=== PATIENT | male | born 1985 | race Caucasian/White ===

== ENCOUNTER 2020-12-05 23:06 | Emergency (ER) | payer OTHER ==
[~2020-12-05 23:06] MED LIST: ALPR1T; ALPR1T PO; CEFU250T11 PO; CRS350T PO; HYDR-4226 PO; POLY10DR OD; PROP-33; PROP1TAB61 PO; QUET300T; SULF1TAB38 PO
[2020-12-05 23:22] LABS: WHITE BLOOD COUNT 11.2 10^3/uL (4.3-11.0)
[2020-12-05 23:23] LABS: BASOPHILS # (AUTO) 0.1 10^3/uL (0.0-0.1); BASOPHILS % (AUTO) 1 % (0-10); EOSINOPHILS # (AUTO) 0.1 10^3/uL (0.0-0.3); EOSINOPHILS % (AUTO) 1 % (0-10); HEMATOCRIT 43 % (40-54); HEMOGLOBIN 14.4 g/dL (13.3-17.7); LYMPHOCYTES # (AUTO) 4.4 X 10^3 (1.0-4.0); LYMPHOCYTES % (AUTO) 39 % (12-44); MEAN CORPUSCULAR HEMOGLOBIN 30 pg (25-34); MEAN CORPUSCULAR HGB CONC 33 g/dL (32-36); MEAN CORPUSCULAR VOLUME 91 fL (80-99); MEAN PLATELET VOLUME 10.1 fL (9.0-12.2); MONOCYTES # (AUTO) 0.7 X 10^3 (0.0-1.0); MONOCYTES % (AUTO) 6 % (0-12); NEUTROPHILS # (AUTO) 5.9 X 10^3 (1.8-7.8); NEUTROPHILS % (AUTO) 53 % (42-75); PLATELET COUNT 253 10^3/uL (130-400)
--- NOTE | 2020-12-05 23:28 | ED Chest Pain ---
General Chief Complaint: Chest Pain Stated Complaint: CHEST PAIN Source: patient, police (Guard from [facility]) History of Present Illness Date Seen by Provider: Dec 05, 2020 Time Seen by Provider: 23:09 Initial Comments 35 yo male presenting from assisted with complaint of chest pain and tingling into left arm and hand. He states this started just a little before 0. He has had similar pains in the past due to reported Mitral Valve issues and states he saw Dr. Parks in [place] for it last around 2008. he is taking lopressor currently for heart rate and blood pressure. He has not seen cardiology since around 2008. He is currently incarcerated and reports having pain at end of October and again last week on November 27. He was treated by chest pain protocol at the [facility] then. Tonight he felt his pain was worse so he came to the ED. He feels like he is short of breath and having trouble catching his breath. He reports a single episode of vomiting when his breathing got short and he started with chest pain. He denies cough, congestion, fever, chills, abdominal pain, trauma. States he was resting in bed when the symptoms came on tonight. He also is concerned that he has not been on his Levothyroxine and asked if that might be causing some of his symptoms. He states it has been at least 18 months since he last took this and has not had follow up or testing for his TSH and thyroid levels. Timing/Duration: 1-3 hours Severity/Quality: severe, sharp Location: other (left upper chest/shoulder) Radiation: arms (left arm) Activities at Onset: rest Prior CP/Workup: other (Reports seeing Dr. Parks with Cardiology in [place] and told he had Mitral Valve issues and thinks he might have gotten a stent) ASA po RN HEART: No NTG SL RN HEART: No Associated Symptoms: No abdominal pain, No back pain, No diaphoresis, No dizziness, No edema, No fatigue, No fever/chills, No headache, No heartburn, No rash; shortness of breath; No swelling/lump in chest, No syncope Allergies and Home Medications Allergies Coded Allergies: Penicillins (Unverified Allergy, Mild, 06/25/08) Iodine (Verified Allergy, 07/19/11) Patient Home Medication List Home Medication List Reviewed: Yes Hydrocodone/Acetaminophen (Hydrocodone/Acetaminophen 5 MG/325 MG TAB) 1 Each Tablet, 1 EACH PO Q4H PRN for PAIN Prescribed by: ETHAN ORTIZ on 08/15/15 1617 Review of Systems Review of Systems Constitutional: No chills, No fever EENTM: No Symptoms Reported Respiratory: Denies Cough; Shortness of Air; Denies Stridor, Denies Wheezing Cardiovascular: Chest Pain Gastrointestinal: Nausea, Vomiting (x1 episode) Genitourinary: No Symptoms Reported Musculoskeletal: no symptoms reported Skin: No rash Psychiatric/Neurological: Denies Headache; Tingling (left hand and arm) Hematologic/Lymphatic: Denies Blood Clots Past Mclqifr-Gzzpjf-Rndxnv Hx Patient Social History Tobacco Use?: Yes Smoking Status: Current Everyday Smoker Use of E-Cig and/or Vaping dev: No Substance use?: Yes Substance type: Methamphetamine Alcohol Use?: Yes Alcohol Frequency: Rarely Past Medical History Asthma Physical Exam Vital Signs Vital Signs - First Documented 12/05/20 23:09 Pulse 68 Resp 18 B/P (MAP) 119/57 (77) Pulse Ox 98 O2 Delivery Room Air Capillary Refill : Less Than 3 Seconds Height, Weight, BMI Height: 6'" Weight: 170lbs. oz. 77.992229ud; BMI Method:Stated General Appearance: No Apparent Distress, WD/WN Neck: Full Range of Motion, Normal Inspection, Non Tender, Supple Respiratory: Chest Non Tender, Lungs Clear, Normal Breath Sounds, No Accessory Muscle Use, No Respiratory Distress Cardiovascular: Regular Rate, Rhythm, No Murmur, Normal Peripheral Pulses Gastrointestinal: Normal Bowel Sounds, No Pulsatile Mass, Non Tender, Soft Rectal: Deferred Extremity: Normal Capillary Refill, Normal Inspection, No Pedal Edema Neurologic/Psychiatric: Alert, Oriented x3, winding operator II-XII Norm as Tested Skin: Normal Color, Warm/Dry; No Rash Images 1 - Reports chest pain in Left upper chest and shoulder area with tingling radiating down left arm to fingers. Progress/Results/Core Measures Results/Orders Lab Results Laboratory Tests Test 12/05/20 23:17 Range/Units White Blood Count 11.2 H 4.3-11.0 10^3/uL Red Blood Count 4.75 4.30-5.52 10^6/uL Hemoglobin 14.4 13.3-17.7 g/dL Hematocrit 43 40-54 % Mean Corpuscular Volume 91 80-99 fL Mean Corpuscular Hemoglobin 30 25-34 pg Mean Corpuscular Hemoglobin Concent 33 32-36 g/dL Red Cell Distribution Width 13.2 10.0-14.5 % Platelet Count 253 130-400 10^3/uL Mean Platelet Volume 10.1 9.0-12.2 fL Immature Granulocyte % (Auto) 0 % Neutrophils (%) (Auto) 53 42-75 % Lymphocytes (%) (Auto) 39 12-44 % Monocytes (%) (Auto) 6 0-12 % Eosinophils (%) (Auto) 1 0-10 % Basophils (%) (Auto) 1 0-10 % Neutrophils # (Auto) 5.9 1.8-7.8 X 10^3 Lymphocytes # (Auto) 4.4 H 1.0-4.0 X 10^3 Monocytes # (Auto) 0.7 0.0-1.0 X 10^3 Eosinophils # (Auto) 0.1 0.0-0.3 10^3/uL Basophils # (Auto) 0.1 0.0-0.1 10^3/uL Immature Granulocyte # (Auto) 0.0 0.0-0.1 10^3/uL Prothrombin Time 13.5 12.2-14.7 SEC INR Comment 1.0 0.8-1.4 Activated Partial Thromboplast Time 28 24-35 SEC Sodium Level 142 135-145 MMOL/L Potassium Level 4.6 3.6-5.0 MMOL/L Chloride Level 105 98-107 MMOL/L Carbon Dioxide Level 26 21-32 MMOL/L Anion Gap 11 5-14 MMOL/L Blood Urea Nitrogen 15 7-18 MG/DL Creatinine 0.86 0.60-1.30 MG/DL Estimat Glomerular Filtration Rate 102 BUN/Creatinine Ratio 17 Glucose Level 92 70-105 MG/DL Calcium Level 9.1 8.5-10.1 MG/DL Corrected Calcium 8.5-10.1 MG/DL Magnesium Level 2.1 1.6-2.4 MG/DL Total Bilirubin 0.3 0.1-1.0 MG/DL Aspartate Amino Transf (AST/SGOT) 18 5-34 U/L Alanine Aminotransferase (ALT/SGPT) 22 0-55 U/L Alkaline Phosphatase 131 40-136 U/L Troponin I < 0.30 <0.30 NG/ML Pro-B-Type Natriuretic Peptide 26.8 <75.0 PG/ML Total Protein 7.4 6.4-8.2 GM/DL Albumin 4.7 H 3.2-4.5 GM/DL Lipase 19 8-78 U/L My Orders Orders - AYDEN HAMPTON MD Cbc With Automated Diff (12/05/20 23:11) Magnesium (12/05/20 23:) Chest 1 View Ap/Pa Only (12/05/20:) Ekg Tracing (12/05/20:) Comprehensive Metabolic Panel (12/05/20:) Protime With Inr (12/05/20:) Partial Thromboplastin Time (12/05/20:) Monitor-Rhythm Ecg Trace Only (12/05/20:) Ed Iv/Invasive Line Start (12/05/20:) Lipase (12/05/20:) Troponin I Fs (12/05/20:) Probnp Fs (12/05/20:) Ketorolac Injection (Toradol Injection) (12/05/20 23:38) Orphenadrine Inj (Ed Only) (Norflex Inje (12/05/20 23:38) Vital Signs/I&O 12/05/20 12/06/20 23:09 00:00 Pulse 68 56 Resp 18 18 B/P (MAP) 119/57 (77) 114/77 Pulse Ox 98 97 O2 Delivery Room Air Room Air Progress Progress Note #1: Progress Note Obtain basic labs with cardiac enzymes. CXR to check for pneumonia, pleural effusion, pneumothorax, cardiomegaly. ECG to evaluate fro acute STEMI, arrhythmia. Review old medical records in electronic medical chart to see if can find any consults or notes from Dr. Parks or Cardiology. Try Toradol with Norflex for his chest pain and tingling into left arm. Progress Note #2: Progress Note CBC with WBC at upper limit of normal at 11.2. Chemistry without acute significant abnormality and negative cardiac enzymes. Coags without acute significant abnormality. ECG appears similar to tracing from 2008. CXR without acute process. Reassure pt that heart tests and chest xray do not show acute heart attack or heart damage or pneumonia or pleural effusion. Could be more musculoskeletal pain. As far as his thyroid goes have him check with clinic for levels and see if he needs to restart a medicine and what dose to give him. I was unable to locate any heart catheterization or consults from Dr. Parks or Cardiology in general going back to 2007. Advised pt that if he has issue with mitral valve he might want to check with Cardiology/pcp and may need echocardiogram to evaluate valves. Initial ECG Impression Date: Dec 05, 2020 Initial ECG Impression Time: 23:08 Initial ECG Rate: 55 Initial ECG Rhythm: Normal Sinus Initial ECG Comparisson: No Previous ECG Available Comment Sinus rhythm with a heart rate of 55 bpm. NH interval 148 ms. QT interval 400 ms with a QTc interval [address] elevation but does have early repolarization changes. Appears similar to prior tracings from 2008. Diagnostic Imaging Diagonstic Imaging: Xray Plain Films/CT/US/NM/MRI: chest Comments NAME: AKIRA BUTLER MED REC#: [id number] PT STATUS: REG ER : 1985 PHYSICIAN: AYDEN HAMPTON MD ADMIT DATE: 12/05/20/ER FS Draft Date of Exam:12/05/20 CHEST 1 VIEW AP/PA ONLY INDICATION: Chest pain and shortness of breath. Comparison made with prior examination 08/08/2008. FINDINGS: The heart size, mediastinal configuration, and pulmonary vascularity are within normal limits. There is no pleural effusion, pneumothorax, or pneumonia. The osseous structures are unremarkable. IMPRESSION: No acute cardiopulmonary abnormality. Dictated on workstation # [id number] Dict: 12/05/20 [id number] Trans: 12/05/20 2330 [id number] Interpreted by: SOHAIL DERAS MD Electronically signed by: Reviewed: Reviewed by Me Departure Impression Primary Impression: Left-sided chest pain Additional Impression: Shortness of breath Disposition: 21 DIS/XFER COURT/[place] (Back to [facility]) Condition: Stable Departure-Patient Inst. Decision time for Depature: 23:54 Referrals: [facility] (PCP/Family) Primary Care Physician CESIA PARKS MD FACP FAC CCDS Patient Instructions: Shortness of Breath, Adult ED, Chest Pain, Adult ED Add. Discharge Instructions: Medically stable to return to [facility] No signs of heart attack or heart damage on testing tonight. Chest xray clear of signs for infection, heart failure, collapsed lung. Check with clinic about testing for thyroid and to determine what dose of Levothyroxine he should restart, if any dose. Follow up with clinic about recurrent chest pains and possibly see Dr. Parks or mine boss of your choice for follow up and recurrent testing if needed for your recurrent episodes of chest pain. All discharge instructions reviewed with patient and/or family. Voiced understanding. AYDEN HAMPTON MD Dec 05, 2020 23:28
[2020-12-05 23:34] LABS: PROTHROMBIN TIME PATIENT 13.5 SEC (12.2-14.7)
[2020-12-05] MEDS ORDERED: KETOROLAC 30 MG/ML VIAL IVP STA (23:38)
[2020-12-05] MEDS ORDERED: ORPHENADRINE 60 MG/2 ML (NORFLEX) AMP (ED ONLY) IVP STA (23:38)
[2020-12-05 23:41] LABS: ALANINE AMINOTRANSFERASE 22 U/L (0-55); ALBUMIN 4.7 GM/DL (3.2-4.5); ALKALINE PHOSPHATASE 131 U/L (40-136); BILIRUBIN,TOTAL 0.3 MG/DL (0.1-1.0); BUN/CREATININE RATIO 17; CALCIUM 9.1 MG/DL (8.5-10.1); CARBON DIOXIDE 26 MMOL/L (21-32); CHLORIDE 105 MMOL/L (98-107); CREATININE SERUM 0.86 MG/DL (0.60-1.30); GFR ESTIMATED 102; GLUCOSE 92 MG/DL (70-105); LIPASE 19 U/L (8-78); MAGNESIUM 2.1 MG/DL (1.6-2.4); POTASSIUM 4.6 MMOL/L (3.6-5.0); SODIUM 142 MMOL/L (135-145); TOTAL PROTEIN 7.4 GM/DL (6.4-8.2)
[2020-12-06] VITALS: BP 114/77
== END 2020-12-06 00:03 ==
LOC: EDUNIT# 23:06 → ER FS 23:08
DX: R07.9 Chest pain, unspecified (principal); R06.02 Shortness of breath; R20.2 Paresthesia of skin; F17.200 Nicotine dependence, unspecified, uncomplicated
CPT/HCPCS: 36415; 71045; 80053; 83690; 83735; 83880; 84484; 85025; 85610; 85730; 93005; 93041

== ENCOUNTER 2022-05-25 02:12 | Emergency (ER) | payer OTHER ==
[2022-05-25] VITALS (7 sets, daily range): BP systolic 107–144; BP diastolic 69–96
[~2022-05-25] VITALS: Ht 180 cm; Wt 100.0 kg
--- NOTE | 2022-05-25 02:43 | ED General ---
General Stated Complaint: TONGUE & THROAT SWELLING Source of Information: Patient (FERMIN HORNE MD) History of Present Illness Date Seen by Provider: May 25, 2022 Time Seen by Provider: 02:28 Initial Comments Patient is a 37-year-old male who presents to the emergency department today with a chief complaint of mouth and tongue swelling. He states it started earlier today and then after he went to bed he felt like he was choking and couldn't swallow. Does not really feel short of breath. Also has Non small cell lung cancer. Continues to smoke. Takes multiple blood pressure medications including lisinopril. Has been on lisinopril for about 6 months. Has never had anything like this before. Patient is very distracted by his phone, very delayed in answering questions and has to be redirected by myself and the nurse multiple times in order to answer questions and make an arm available for an IV, VS - slightly hypertensive. tachycardia at 129 room air oxygen sats Timing/Duration: 12 Hours Severity: Moderate Associated Systoms: Denies Symptoms (FERMIN HORNE MD) Allergies and Home Medications Allergies Coded Allergies: Penicillins (Unverified Allergy, Mild, 06/25/08) Iodine (Verified Allergy, 07/19/11) Patient Home Medication List Home Medication List Reviewed: Yes (FERMIN HORNE MD) Hydrocodone/Acetaminophen (Hydrocodone/Acetaminophen 5 MG/325 MG TAB) 1 Each Tablet, 1 EACH PO Q4H PRN for PAIN Prescribed by: ETHAN ORTIZ on 08/15/15 1617 Review of Systems Review of Systems Constitutional: see HPI EENTM: throat swelling, other (tongue swelling) Respiratory: no symptoms reported Cardiovascular: no symptoms reported Gastrointestinal: no symptoms reported (FERMIN HORNE MD) Past Kvbjvem-Mnjnyu-Jwghqh Hx Past Medical History Asthma (FERMIN HORNE MD) Physical Exam Vital Signs Vital Signs - First Documented 05/25/22 05/25/22 02:23 05:37 Temp 37.4 Pulse 129 Resp 18 B/P (MAP) 137/104 (115) Pulse Ox 95 O2 Delivery Room Air (DUPREE,FRENCH L DO) Vital Signs Capillary Refill : (FERMIN HORNE MD) Height, Weight, BMI Height: 6'" Weight: 170lbs. oz. 77.794272qi; BMI Method:Stated General Appearance: No Apparent Distress, WD/WN, Other (reeks of cigarette sm beth) Eyes: Bilateral Eye Normal Inspection, Bilateral Eye PERRL, Bilateral Eye EOMI HEENT: Other (significant tongue swelling - tongue is not protruding from the mouth. no lip swelling - posterior pharynx open, no uvular edema - mallampati 1; + hot potatoe type voice) Neck: Normal Inspection, Non Tender, Supple Respiratory: Lungs Clear, Normal Breath Sounds, No Accessory Muscle Use, No Respiratory Distress Cardiovascular: Regular Rate, Rhythm, Tachycardia (120) Extremity: Normal Inspection Neurologic/Psychiatric: Alert, Oriented x3, No Motor/Sensory Deficits, Normal Mood/Affect, expeller operator II-XII Norm as Tested Skin: Normal Color, Warm/Dry, Other (FERMIN HORNE MD) Progress/Results/Core Measures Suspected Sepsis SIRS Temperature: Pulse: Respiratory Rate: Blood Pressure / Mean: Laboratory Tests 05/25/22 02:30: Creatinine 0.75 (FERMIN HORNE MD) Results/Orders Lab Results Laboratory Tests Test 05/25/22 02:30 Range/Units Sodium Level 141 135-145 MMOL/L Potassium Level 3.5 L 3.6-5.0 MMOL/L Chloride Level 109 H 98-107 MMOL/L Carbon Dioxide Level 21 21-32 MMOL/L Anion Gap 11 5-14 MMOL/L Blood Urea Nitrogen 11 7-18 MG/DL Creatinine 0.75 0.60-1.30 MG/DL Estimat Glomerular Filtration Rate 121 BUN/Creatinine Ratio 15 Glucose Level 105 70-105 MG/DL Calcium Level 9.2 8.5-10.1 MG/DL (FRENCH DUPREE DO) Medications Given in ED Current Medications Medications Dose Ordered Sig/Emmie Route Start Time Stop Time Status Last Admin Dose Admin Dexamethasone Sodium Phosphate 10 mg ONCE ONCE IV 05/25/22 02:45 05/25/22 02:46 DC 05/25/22 02:54 10 MG (FRENCH DUPREE DO) Vital Signs/I&O 05/25/22 05/25/22 05/25/22 05/25/22 02:23 05:37 05:51 06:17 Temp 37.4 37.0 36.8 Pulse 129 97 88 96 Resp 18 16 16 16 B/P (MAP) 137/104 (115) 123/73 107/69 144/95 Pulse Ox 95 96 95 O2 Delivery Room Air Room Air Room Air 05/25/22 05/25/22 05/25/22 06:43 07:00 08:09 Temp 36.7 36.7 36.7 Pulse 94 86 88 Resp 16 16 20 B/P (MAP) 131/93 121/80 131/96 Pulse Ox 95 95 100 O2 Delivery Room Air Room Air (FRENCH DUPREE DO) Vital Signs/I&O Capillary Refill : (FERMIN HORNE MD) Progress Note : Time: 05:52 Progress Note patient feeling a little better. getting his first unit of FFP. VSS; BP is much better then at presentation. Care passed to Dr Dupree at shift change. (FERMIN HORNE MD) Progress Note : Progress Note 0825 patient symptoms significantly improved. Patient care assumed from Dr. Horne at shift change. Patient's labs were reviewed and interpreted. He had a mild decrease in his chloride and potassium but no acute concerning findings. Patient was educated to be sure to no longer take his lisinopril. Patient's diagnosis and treatment plans are significantly limited by SDOH: including limited education, illiteracy. Limited access to care. Patient was significantly improved, stable and discharged home. (FRENCH DUPREE DO) Departure Impression Primary Impression: Angioedema due to angiotensin converting enzyme inhibitor (RICHARD-I) Disposition: 01 HOME, SELF-CARE Condition: Stable Departure-Patient Inst. Referrals: [facility] (PCP/Family) Primary Care Physician Patient Instructions: Angioedema (DC) Add. Discharge Instructions: You CANNOT take your LISINOPRIL anymore. Stop this medication. It is possible that you could have a return of symptoms within the next month after stopping the lisinopril. If you do, please come back to the Emergency Department for re-evaluation. Please call your primary care doctor's office today to schedule a follow up appointment to add a new Blood Pressure medication to replace the lisinopril. Return to the Emergency Department for any new, emergent or concerning symptoms. Copy Copies To 1: IVANA SHRESTHA KATHRYN M MD May 25, 2022 02:43 FRENCH DUPREE DO May 25, 2022 08:19
[2022-05-25 02:49] LABS: POTASSIUM 3.5 MMOL/L (3.6-5.0)
[2022-05-25 02:50] LABS: CALCIUM 9.2 MG/DL (8.5-10.1)
[2022-05-25 02:55] LABS: CREATININE SERUM 0.75 MG/DL (0.60-1.30)
[2022-05-25] MEDS ORDERED: NS IV 500 ML 500 ML IV SCH (03:00)
[2022-05-25] MEDS ORDERED: NS IV 500 ML 500 ML ONE (05:09)
== END 2022-05-25 08:44 | disposition home or self-care (01) ==
LOC: EDUNIT# 02:12 → ER 02:20
DX: T78.3XXA Angioneurotic edema, initial encounter (principal); T46.4X5A Adverse effect of angiotensin-converting-enzyme inhibitors, initial encounter; I10 Essential (primary) hypertension; F17.210 Nicotine dependence, cigarettes, uncomplicated; Z79.899 Other long term (current) drug therapy
CPT/HCPCS: 36415; 80048; 86850; 86900; 86901

== ENCOUNTER 2022-07-30 02:10 | Emergency (ER) | payer OTHER ==
--- NOTE | 2022-07-30 02:25 | ED Chest Pain ---
General Chief Complaint: Chest Pain Stated Complaint: CP Source: patient Exam Limitations: no limitations History of Present Illness Date Seen by Provider: Jul 30, 2022 Time Seen by Provider: 02:14 Initial Comments 37-year-old male presents to the emergency department via EMS from [facility]. He states that he is having chest pain. He also had a headache of onset. Symptoms started just before midnight and have been persistent since that time. He took his blood pressure in [facility] and it was significantly elevated, greater than 200 systolic. Notably he has been in [facility] since July 21 and he has not had his blood pressure medications including metoprolol and clonidine. He was formally on lisinopril but had angioedema and was taken off of this. He was given amlodipine at the [facility] about an hour prior to arrival. EMS reports his blood pressures in the 180s to 190s systolic range during transport. He was also given aspirin 324 mg by EMS prior to arrival. On arrival he has Nitropaste in place in his left anterior chest and states his chest pain is improved but still there minimally. His headache and blurred vision have improved. Blood pressure on arrival was 160 systolic. He does state he has cardiac stents All other systems reviewed and negative except documented per HPI. Voice recognition software was used to help create this chart Allergies and Home Medications Allergies Coded Allergies: Penicillins (Unverified Allergy, Mild, 06/25/08) RICHARD Inhibitors (Verified Allergy, Unknown, 07/30/22) iodine (Verified Allergy, Unknown, 05/25/22) Patient Home Medication List Home Medication List Reviewed: Yes Hydrocodone/Acetaminophen (Hydrocodone/Acetaminophen 5 MG/325 MG TAB) 1 Each Tablet, 1 EACH PO Q4H PRN for PAIN Prescribed by: ETHAN ORTIZ on 08/15/15 1617 Review of Systems Review of Systems Constitutional: see HPI Past Nduxlrr-Jcouob-Usufwa Hx Past Medical History Surgery/Hospitalization HX: htn Asthma Family Medical History Reviewed Nursing Family Hx Physical Exam Vital Signs Vital Signs - First Documented 07/30/22 02:10 Pulse 86 Resp 16 B/P (MAP) 162/91 (114) Pulse Ox 99 O2 Delivery Room Air Capillary Refill : Height, Weight, BMI Height: 6'" Weight: 170lbs. oz. 77.886955dq; 30.00 BMI Method:Stated General Appearance: No Apparent Distress, WD/WN HEENT: Normal ENT Inspection, Pharynx Normal Neck: Full Range of Motion, Normal Inspection, Non Tender, Supple Respiratory: Chest Non Tender, Lungs Clear, Normal Breath Sounds, No Accessory Muscle Use, No Respiratory Distress Cardiovascular: Regular Rate, Rhythm, No Murmur, Normal Peripheral Pulses Gastrointestinal: Normal Bowel Sounds, No Organomegaly, No Pulsatile Mass, Non Tender, Soft Extremity: Normal Capillary Refill, Normal Inspection, Normal Range of Motion, Non Tender, No Calf Tenderness Neurologic/Psychiatric: Alert, Oriented x3 Skin: Normal Color, Warm/Dry Progress/Results/Core Measures Results/Orders Lab Results Laboratory Tests Test 07/30/22 02:23 Range/Units White Blood Count 12.7 H 4.3-11.0 10^3/uL Red Blood Count 5.14 4.30-5.52 10^6/uL Hemoglobin 14.9 13.3-17.7 g/dL Hematocrit 45 40-54 % Mean Corpuscular Volume 88 80-99 fL Mean Corpuscular Hemoglobin 29 25-34 pg Mean Corpuscular Hemoglobin Concent 33 32-36 g/dL Red Cell Distribution Width 13.1 10.0-14.5 % Platelet Count 303 130-400 10^3/uL Mean Platelet Volume 10.3 9.0-12.2 fL Immature Granulocyte % (Auto) 0 % Neutrophils (%) (Auto) 69 42-75 % Lymphocytes (%) (Auto) 25 12-44 % Monocytes (%) (Auto) 5 0-12 % Eosinophils (%) (Auto) 0 0-10 % Basophils (%) (Auto) 1 0-10 % Neutrophils # (Auto) 8.8 H 1.8-7.8 10^3/uL Lymphocytes # (Auto) 3.1 1.0-4.0 10^3/uL Monocytes # (Auto) 0.7 0.0-1.0 10^3/uL Eosinophils # (Auto) 0.0 0.0-0.3 10^3/uL Basophils # (Auto) 0.1 0.0-0.1 10^3/uL Immature Granulocyte # (Auto) 0.0 0.0-0.1 10^3/uL Sodium Level 137 135-145 MMOL/L Potassium Level 4.3 3.6-5.0 MMOL/L Chloride Level 102 98-107 MMOL/L Carbon Dioxide Level 25 21-32 MMOL/L Anion Gap 10 5-14 MMOL/L Blood Urea Nitrogen 11 7-18 MG/DL Creatinine 0.84 0.60-1.30 MG/DL Estimat Glomerular Filtration Rate 117 BUN/Creatinine Ratio 13 Glucose Level 93 70-105 MG/DL Calcium Level 9.5 8.5-10.1 MG/DL Corrected Calcium 9.2 8.5-10.1 MG/DL Magnesium Level 2.0 1.6-2.4 MG/DL Total Bilirubin 0.3 0.1-1.0 MG/DL Aspartate Amino Transf (AST/SGOT) 20 5-34 U/L Alanine Aminotransferase (ALT/SGPT) 31 0-55 U/L Alkaline Phosphatase 124 40-136 U/L Myoglobin 26.4 10.0-92.0 NG/ML Troponin I < 0.028 <0.028 NG/ML Total Protein 7.5 6.4-8.2 GM/DL Albumin 4.4 3.2-4.5 GM/DL My Orders Orders - CECILIO LOYOLA DO Ekg Tracing (07/30/22 02:16) Cbc With Automated Diff (07/30/22 02:20) Magnesium (07/30/22 02:20) Chest 1 View, Ap/Pa Only (07/30/22 02:20) Comprehensive Metabolic Panel (07/30/22 02:20) Myoglobin Serum (07/30/22 02:20) Ed Iv/Invasive Line Start (07/30/22 02:20) Troponin I Vivian (07/30/22 02:20) Metoprolol Succinate (Xl) Tab (Toprol Xl (07/30/22 02:30) Clonidine Tablet (Catapres Tablet) (07/30/22 02:30) Hydralazine Injection (Apresoline Inject (07/30/22 03:15) Acetaminophen Tablet (Tylenol Tablet) (07/30/22 03:53) Acetaminophen Tablet (Tylenol Tablet) (07/30/22 04:00) Medications Given in ED Current Medications Medications Dose Ordered Sig/Emmie Route Start Time Stop Time Status Last Admin Dose Admin Acetaminophen 1,000 mg ONCE ONCE PO 07/30/22 04:00 07/30/22 04:01 07/30/22 03:57 1,000 MG Clonidine HCl 0.2 mg ONCE ONCE PO 07/30/22 02:30 07/30/22 02:32 DC 07/30/22 02:44 0.2 MG Hydralazine HCl 10 mg ONCE ONCE IV 07/30/22 03:15 07/30/22 03:16 DC 07/30/22 03:20 10 MG Metoprolol Succinate 100 mg ONCE ONCE PO 07/30/22 02:30 07/30/22 02:32 DC 07/30/22 02:44 100 MG Vital Signs/I&O 07/30/22 07/30/22 02:10 03:57 Pulse 86 Resp 16 B/P (MAP) 162/91 (114) 130/80 (97) Pulse Ox 99 O2 Delivery Room Air Comment Sinus rhythm at a rate of 77 bpm. Normal intervals. Normal axis. No ST or T wave abnormalities. No ectopy. No STEMI. Diagnostic Imaging Comments Chest x-ray is negative for any acute cardiopulmonary or bony abnormalities on my independent review. Departure Communication (Admissions) Patient initially with severe hypertension. This did start coming down on its own with amlodipine that was given prior to arrival as well as his Nitropaste. I took over the Nitropaste and needed help a slight rebound and hypertension briefly. We gave him his p.o. metoprolol and clonidine and gave him some IV hydralazine to work in the interim while these medications took effect. This had a good improvement in his blood pressure. The bedside monitor was reading high however on several manual readings, the last one taken by myself his blood pressure is currently 130/80. He does describe a headache, I think this is likely from decreasing his blood pressure and possibly from the nitro as well. He is given Tylenol for this. I wrote for him to have his metoprolol and clonidine at the [facility]. He is discharged in stable condition. Impression Primary Impression: Essential hypertension Disposition: 01 HOME, SELF-CARE Condition: Stable Departure-Patient Inst. Referrals: [facility] (PCP/Family) Primary Care Physician Patient Instructions: Chest Pain That Is Not Caused by the Heart (DC), High Blood Pressure ED Add. Discharge Instructions: Take your blood pressure medication as previously prescribed. Return to the emergency department for any severe concerns. All discharge instructions reviewed with patient and/or family. Voiced understanding. CECILIO LOYOLA DO Jul 30, 2022 02:25
[2022-07-30 02:30] LABS: BASOPHILS # (AUTO) 0.1 10^3/uL (0.0-0.1); BASOPHILS % (AUTO) 1 % (0-10); EOSINOPHILS % (AUTO) 0 % (0-10); HEMATOCRIT 45 % (40-54); HEMOGLOBIN 14.9 g/dL (13.3-17.7); LYMPHOCYTES # (AUTO) 3.1 10^3/uL (1.0-4.0); LYMPHOCYTES % (AUTO) 25 % (12-44); MEAN CORPUSCULAR HEMOGLOBIN 29 pg (25-34); MEAN CORPUSCULAR HGB CONC 33 g/dL (32-36); MEAN CORPUSCULAR VOLUME 88 fL (80-99); MEAN PLATELET VOLUME 10.3 fL (9.0-12.2); MONOCYTES # (AUTO) 0.7 10^3/uL (0.0-1.0); MONOCYTES % (AUTO) 5 % (0-12); NEUTROPHILS # (AUTO) 8.8 10^3/uL (1.8-7.8); NEUTROPHILS % (AUTO) 69 % (42-75); PLATELET COUNT 303 10^3/uL (130-400); WHITE BLOOD COUNT 12.7 10^3/uL (4.3-11.0)
[2022-07-30] MEDS ORDERED: cloNIDine 0.2 MG (CATAPRES) TAB PO ONE (02:30)
[2022-07-30] MEDS ORDERED: meTOprolol SUCCINATE 100 MG (TOPROL XL) TAB PO ONE (02:30)
[2022-07-30 02:42] LABS: ALBUMIN 4.4 GM/DL (3.2-4.5); CHLORIDE 102 MMOL/L (98-107); POTASSIUM 4.3 MMOL/L (3.6-5.0); SODIUM 137 MMOL/L (135-145)
[2022-07-30 02:43] LABS: CALCIUM 9.5 MG/DL (8.5-10.1)
[2022-07-30 02:44] LABS: GLUCOSE 93 MG/DL (70-105); TOTAL PROTEIN 7.5 GM/DL (6.4-8.2)
[2022-07-30 02:45] LABS: CARBON DIOXIDE 25 MMOL/L (21-32)
[2022-07-30 02:46] LABS: BILIRUBIN,TOTAL 0.3 MG/DL (0.1-1.0)
[2022-07-30 02:48] LABS: ALKALINE PHOSPHATASE 124 U/L (40-136); CREATININE SERUM 0.84 MG/DL (0.60-1.30); GFR ESTIMATED 117
[2022-07-30 02:49] LABS: BUN/CREATININE RATIO 13
[2022-07-30 02:51] LABS: ALANINE AMINOTRANSFERASE 31 U/L (0-55)
[2022-07-30] MEDS ORDERED: hydrALAZINE (APESOLINE) 20 MG/ML VIAL IV ONE (03:15)
[2022-07-30] MEDS ORDERED: ACETAMINOPHEN 500 MG TAB (TYLENOL) ONE (03:53)
[2022-07-30] MEDS ORDERED: ACETAMINOPHEN 500 MG TAB (TYLENOL) PO ONE (04:00)
[2022-07-30 04:02] VITALS: BP 130/80
--- NOTE | 2022-07-30 04:55 | Diagnostic Imaging Report ---
INDICATION: 37-year-old male with chest pain and shortness of breath. COMPARISONS: 12/05/2020 FINDINGS: Single view of the chest shows normal heart, pulmonary vasculature, pleura and diaphragms with no focal opacities. Soft tissues and visualized bony thorax are normal. IMPRESSION: No acute cardiopulmonary changes. Dictated by: Dictated on workstation # [id number]
== END 2022-07-30 04:03 | disposition home or self-care (01) ==
LOC: EDUNIT# 02:10 → ER 02:12
DX: I10 Essential (primary) hypertension (principal); Z95.5 Presence of coronary angioplasty implant and graft; Z28.310 Unvaccinated for COVID-19
CPT/HCPCS: 36415; 71045; 80053; 83735; 83874; 84484; 85025; 93005